=== PATIENT | female | born 1970 | race Caucasian/White ===

== ENCOUNTER 2017-10-17 13:24 | Inpatient (IN) | payer OTHER ==
[~2017-10-17] VITALS: Ht 149.9 cm; Wt 64.1 kg
[2017-10-17] MEDS ORDERED: HEPARIN SODIUM (PORCINE) 5000 UNITS/ML 1ML VIAL ONE (13:55)
[2017-10-17] MEDS ORDERED: LIDOCAINE 2%HCL (LOCAL ANESTH.) INJ 20ML MDV ONE (13:56)
[2017-10-17] MEDS ORDERED: IOHEXOL 350 MG/ML 100ML IJ ONE (13:56)
[2017-10-17] MEDS ORDERED: HEPARIN SODIUM (PORCINE) 5000 UNITS/ML 1ML VIAL IV ONE (14:00)
[2017-10-17] MEDS ORDERED: fentaNYL CITRATE 100 MCG/2 ML VL ONE (14:02)
[2017-10-17] MEDS ORDERED: ANGIOMAX 250 MG VIAL IV ONE (14:02)
[2017-10-17] MEDS ORDERED: MIDAZOLAM HCL 1MG/1ML-2 ML VIAL ONE (14:03)
[2017-10-17 14:04] LABS: Basophils # (auto) 0.1 uL; Basophils % (auto) 0.7 % (0.0-2.0); Eosinophils # (auto) 0.1 uL; Eosinophils % (auto) 0.9 % (0.0-7.0); Hematocrit 40.1 % (36.0-46.0); Hemoglobin 13.2 g/dL (12.2-16.2); Lymphocytes # (auto) 2.1 uL; Lymphocytes % (auto) 23.6 % (10.0-50.0); Mean Corpuscular Hemoglobin 28.9 pg (28.0-32.0); Mean Corpuscular Volume 87.5 fL (80.0-100.0); Monocytes # (auto) 0.6 uL; Monocytes % (auto) 7.2 % (0.0-12.0); Neutrophils # (auto) 5.9 uL; Neutrophils % (auto) 67.6 % (37.0-80.0); Nucleated Red Blood Cells % 0.1 %; Platelet Count (auto) 283 10^3/uL (140-450); Red Blood Cells 4.58 10^6/uL (4.0-5.20); Red Cell Distribution Width 14.2 % (11.8-14.3); White Blood Cell 8.8 10^3/uL (4.4-10.8)
[2017-10-17] MEDS ORDERED: EPINEPHrine HCL 1 MG/10 ML SYRG ONE (14:06)
[2017-10-17] MEDS ORDERED: ATROPINE SULF 0.5 MG/5ML SYR ONE (14:06)
[2017-10-17] MEDS ORDERED: PRASUGREL HCL 10 MG TAB ONE (14:37)
[2017-10-17 14:44] LABS: Albumin 3.5 g/dL (3.4-5.0); BUN/Creatinine Ratio 21.4; Bilirubin, Total 0.4 mg/dL (0.2-1.0); Calcium 8.2 mg/dL (8.5-10.1); Magnesium 2.5 mg/dL (1.6-2.6); Potassium 3.8 mmol/L (3.5-5.1)
[2017-10-17] MEDS ORDERED: SODIUM CHLORIDE 0.9% 1,000 ML IV SCH (15:09)
[2017-10-17] MEDS ORDERED: HYDROcodone-ACET 5/325MG TAB PO PRN (15:15)
[2017-10-17] MEDS ORDERED: ACETAMINOPHEN 500 MG TAB PO PRN (15:15)
[2017-10-17] MEDS ORDERED: ONDANSETRON HCL 4 MG/2 ML VIAL IV PRN (15:15)
[2017-10-17] MEDS ORDERED: MORPHINE SULF INJ 2 MG/ML SYRINGE 1ML IV PRN ×2 (15:15)
[2017-10-17] MEDS ORDERED: NITROGLYCERIN 0.4 MG SL TAB SL PRN ×2 (15:15)
[2017-10-17] MEDS ORDERED: PANTOPRAZOLE 40 MG/10 ML VIAL IV ONE (15:30)
[2017-10-17] MEDS ORDERED: OPTISON 3ml Vial for INJ IV ONE ×2 (16:25→16:45)
[2017-10-17] MEDS: METOPROLOL TARTRATE 25 MG TAB PO SCH (21:49)
[2017-10-17 22:00] VITALS: BP 121/82
[2017-10-17] MEDS ORDERED: ATORVASTATIN 20 MG TAB PO SCH (22:00)
[2017-10-18 05:00] VITALS: BP 99/63
[2017-10-18 07:22] LABS: Calcium 8.3 mg/dL (8.5-10.1); Potassium 3.8 mmol/L (3.5-5.1)
[2017-10-18 07:59] LABS: Basophils # (auto) 0 uL; Basophils % (auto) 0.4 % (0.0-2.0); Eosinophils # (auto) 0.1 uL; Eosinophils % (auto) 0.8 % (0.0-7.0); Hematocrit 36.9 % (36.0-46.0); Hemoglobin 12.3 g/dL (12.2-16.2); Lymphocytes # (auto) 2.2 uL; Lymphocytes % (auto) 23.2 % (10.0-50.0); Mean Corpuscular Hemoglobin 29.4 pg (28.0-32.0); Mean Corpuscular Hgb Conc. 33.5 g/dL (32.0-36.0); Mean Corpuscular Volume 87.8 fL (80.0-100.0); Monocytes # (auto) 0.9 uL; Monocytes % (auto) 9.6 % (0.0-12.0); Neutrophils # (auto) 6.3 uL; Platelet Count (auto) 265 10^3/uL (140-450); Red Cell Distribution Width 14.3 % (11.8-14.3); White Blood Cell 9.5 10^3/uL (4.4-10.8)
[2017-10-18] MEDS: METOPROLOL TARTRATE 25 MG TAB PO SCH (09:38)
[2017-10-18 09:41] VITALS: BP 98/63
[2017-10-18] MEDS ORDERED: ASPirin 81 mg TAB PO SCH (10:00)
[2017-10-18] MEDS ORDERED: PRASUGREL HCL 10 MG TAB PO SCH (10:00)
[2017-10-18] MEDS ORDERED: PANTOPRAZOLE 40 MG/10 ML VIAL IV SCH (10:00)
[2017-10-18 11:41] VITALS: BP 115/65
[2017-10-18 15:49] VITALS: BP 98/63
== END 2017-10-18 16:22 | disposition home or self-care (01) | DRG 247 ==
LOC: ER 13:24 → EDBD 13:24 → OVERFLOW 13:25 → TELE-WESTW 17:18
PROVIDERS: ADMIT Internal Medicine Cardiovascular Disease; ATTEND Internal Medicine
PROC: 027135Z Dilation of Coronary Artery, Two Arteries with Two Drug-eluting Intraluminal Devices, Percutaneous Approach (ICD-10-PCS; principal; 2017-10-17)
PROC: 4A023N7 Measurement of Cardiac Sampling and Pressure, Left Heart, Percutaneous Approach (ICD-10-PCS; 2017-10-17)
PROC: B2111ZZ Fluoroscopy of Multiple Coronary Arteries using Low Osmolar Contrast (ICD-10-PCS; 2017-10-17)
DX: I21.9 Acute myocardial infarction, unspecified (principal); I11.9 Hypertensive heart disease without heart failure; E78.5 Hyperlipidemia, unspecified; I25.10 Atherosclerotic heart disease of native coronary artery without angina pectoris; Z72.0 Tobacco use; Z82.49 Family history of ischemic heart disease and other diseases of the circulatory system; Z88.8 Allergy status to other drugs, medicaments and biological substances
CPT/HCPCS: 36415; 71045; 80048; 80053; 83735; 84484; 85025; 86850; 86900; 86901; 92928; 93005; 93306; 93458; 99152; C1874; C1887; C9113; J0461; J2250; Q9956

== ENCOUNTER 2018-07-08 14:14 | Emergency (ER) | payer OTHER ==
[~2018-07-08] VITALS: Ht 149.9 cm; Wt 59.0 kg
[2018-07-08] MEDS ORDERED: SODIUM CHLORIDE 0.9% 1,000 ML IV ONE (14:18)
[2018-07-08] MEDS ORDERED: ASPirin 81 mg TAB PO ONE (14:30)
[2018-07-08 14:48] LABS: Basophils # (auto) 0 uL; Basophils % (auto) 0.6 % (0.0-2.0); Eosinophils # (auto) 0.1 uL; Eosinophils % (auto) 1.7 % (0.0-7.0); Hematocrit 39.4 % (36.0-46.0); Hemoglobin 13.4 g/dL (12.2-16.2); Lymphocytes # (auto) 2.1 uL; Lymphocytes % (auto) 31.9 % (10.0-50.0); Mean Corpuscular Hemoglobin 29.2 pg (28.0-32.0); Mean Corpuscular Volume 85.8 fL (80.0-100.0); Monocytes # (auto) 0.4 uL; Monocytes % (auto) 6.4 % (0.0-12.0); Neutrophils # (auto) 3.9 uL; Neutrophils % (auto) 59.4 % (37.0-80.0); Nucleated Red Blood Cells % 0.1 %; Platelet Count (auto) 274 10^3/uL (140-450); Red Blood Cells 4.59 10^6/uL (4.0-5.20); Red Cell Distribution Width 13.8 % (11.8-14.3); White Blood Cell 6.5 10^3/uL (4.4-10.8)
[2018-07-08 15:08] LABS: Alanine Aminotransferase 31 U/L (13-56); Albumin 3.7 g/dL (3.4-5.0); Anion Gap 6 (5-15); Aspartate Aminotransferase 19 U/L (15-37); Blood Urea Nitrogen 11 mg/dL (7-18); Carbon Dioxide 24 mmol/L (21-32); Chloride 111 mmol/L (98-107); GFR African American 152 mL/min; GFR Non-African American 125 mL/min; Glucose 85 mg/dL (74-106); Magnesium 2.3 mg/dL (1.6-2.6); Potassium 3.7 mmol/L (3.5-5.1); Sodium 141 mmol/L (136-145)
[2018-07-08 15:10] LABS: INR 0.96 (0.9-1.15); Partial Thromboplastin Time 29.3 sec (23.78-33.04); Prothrombin Time 10.3 sec (9.27-12.13)
[2018-07-08 15:13] LABS: Alkaline Phosphatase 100 U/L (45-117); Bilirubin, Total 0.5 mg/dL (0.2-1.0); Total Protein 6.7 g/dL (6.4-8.2)
[2018-07-08 21:30] VITALS: BP 140/79
== END 2018-07-08 21:44 | disposition short-term general hospital (02) ==
LOC: EDBD 14:14 → ER 14:16
DX: I24.9 Acute ischemic heart disease, unspecified (principal); I25.2 Old myocardial infarction; F17.210 Nicotine dependence, cigarettes, uncomplicated; Z98.61 Coronary angioplasty status; Z88.8 Allergy status to other drugs, medicaments and biological substances
CPT/HCPCS: 36415; 71045; 80053; 83735; 83880; 84484; 85025; 85610; 85730; 93005; 94761

== ENCOUNTER 2019-05-25 12:46 | Inpatient (IN) | payer OTHER ==
[~2019-05-25] VITALS: Ht 149.9 cm; Wt 64.2 kg
[2019-05-25] MEDS ORDERED: SODIUM CHLORIDE 0.9% 1,000 ML IVB ONE (13:23)
[2019-05-25 13:55] LABS: Basophils # (auto) 0 uL; Basophils % (auto) 0.8 % (0.0-2.0); Eosinophils # (auto) 0.1 uL; Eosinophils % (auto) 2.4 % (0.0-7.0); Hematocrit 39.1 % (36.0-46.0); Hemoglobin 13.2 g/dL (12.2-16.2); Lymphocytes # (auto) 1.5 uL; Lymphocytes % (auto) 30.3 % (10.0-50.0); Mean Corpuscular Hemoglobin 29.3 pg (28.0-32.0); Mean Corpuscular Hgb Conc. 33.7 g/dL (32.0-36.0); Mean Corpuscular Volume 86.9 fL (80.0-100.0); Monocytes # (auto) 0.4 uL; Monocytes % (auto) 7.8 % (0.0-12.0); Neutrophils % (auto) 58.7 % (37.0-80.0); Platelet Count (auto) 258 10^3/uL (140-450); Red Cell Distribution Width 14.3 % (11.8-14.3); White Blood Cell 5.1 10^3/uL (4.4-10.8)
[2019-05-25 14:09] LABS: Alanine Aminotransferase 24 U/L (13-56); Albumin 3.5 g/dL (3.4-5.0); Anion Gap 6 (5-15); Aspartate Aminotransferase 13 U/L (15-37); BUN/Creatinine Ratio 12.3; Blood Urea Nitrogen 8 mg/dL (7-18); Calcium 8.2 mg/dL (8.5-10.1); Carbon Dioxide 24 mmol/L (21-32); Chloride 114 mmol/L (98-107); GFR African American 125 mL/min; GFR Non-African American 103 mL/min; Glucose 123 mg/dL (74-106); Magnesium 2.5 mg/dL (1.6-2.6); Potassium 3.7 mmol/L (3.5-5.1); Sodium 144 mmol/L (136-145)
[2019-05-25 14:10] LABS: INR 0.93 (0.9-1.15); Partial Thromboplastin Time 30.2 sec (23.64-32.05)
[2019-05-25 14:14] LABS: Alkaline Phosphatase 90 U/L (45-117); Bilirubin, Total 0.4 mg/dL (0.2-1.0); Total Protein 6.4 g/dL (6.4-8.2)
[2019-05-25 15:28] LABS: Urine Bacteria FEW /hpf (None Seen); Urine Blood Negative /uL (Negative); Urine Mucus FEW (None Seen); Urine Specific Gravity 1.009 (1.001-1.035); Urine WBC 14 /hpf (0 - 5)
[2019-05-25 15:38] LABS: Alcohol, Urine < 3.0 mg/dL (0-5); Amphetamine Screen, Urine NEGATIVE (NEGATIVE); Barbiturate Scree,Urine NEGATIVE (NEGATIVE); Benzodiazephine Screen, Urine NEGATIVE (NEGATIVE); Cannabinoid Screen, Urine NEGATIVE (NEGATIVE); Cocaine Screen, Urine NEGATIVE (NEGATIVE); Opiate Scree,Urine NEGATIVE (NEGATIVE); Phencyclidine Screen, Urine NEGATIVE (NEGATIVE)
[2019-05-25] MEDS ORDERED: MVI in SODIUM CHLORIDE 0.9% 1,010 ML IV ONE (16:50)
[2019-05-25] MEDS ORDERED: SODIUM CHLORIDE 0.9% 2,000 ML IV ONE (17:00)
[2019-05-25] MEDS ORDERED: THIAMINE 100mg/ml INJ (200mg/2ml VIAL) IV ONE (17:00)
[2019-05-25] MEDS ORDERED: cefTRIAXone 1GM/50ML D5W 50 ML IV ONE (18:00)
[2019-05-25] MEDS ORDERED: TEMAZEPAM 15 MG CAP PO PRN (22:45)
[2019-05-25] MEDS ORDERED: ONDANSETRON HCL 4 MG/2 ML VIAL IV PRN (22:45)
[2019-05-25] MEDS ORDERED: ACETAMINOPHEN 500 MG TAB PO PRN (22:45)
--- NOTE | 2019-05-26 00:05 | NUR ---
RECEIVED PATIENT FROM ED VIA WHEELCHAIR, AWAKE, ALERT, ORIENTED X4, AMBULATORY. NO S/S OF RESPIRATORY DISTRESS, DENIES ANY PAIN. SKIN IS INTACT. ORIENTED ON PLAN OF CARE. BED IS LOCKED AND IN LOWEST POSITION, SIDE RAILS UP X2, CALL LIGHT WITHIN REACH. WILL CONTINUE TO MONITOR.
[2019-05-26 00:10] VITALS: BP 115/73
--- NOTE | 2019-05-26 00:15 | NUR ---
UNABLE TO DO MED REC, PATIENT DOES NOT KNOW THE NAME OF HER HOME MEDICATIONS. INSTRUCTED TO ASK SOMEBODY TO BRING MEDICATIONS LIST IN AM
[2019-05-26 05:00] VITALS: BP 136/70
[2019-05-26 06:58] LABS: Basophils # (auto) 0 uL; Eosinophils # (auto) 0.1 uL; Eosinophils % (auto) 2.8 % (0.0-7.0); Lymphocytes # (auto) 1.9 uL; Lymphocytes % (auto) 36.1 % (10.0-50.0); Mean Corpuscular Hemoglobin 29.5 pg (28.0-32.0); Mean Corpuscular Hgb Conc. 34.1 g/dL (32.0-36.0); Mean Corpuscular Volume 86.3 fL (80.0-100.0); Monocytes # (auto) 0.3 uL; Monocytes % (auto) 6.8 % (0.0-12.0); Neutrophils # (auto) 2.7 uL; Neutrophils % (auto) 53.3 % (37.0-80.0); Platelet Count (auto) 243 10^3/uL (140-450); Red Cell Distribution Width 14.3 % (11.8-14.3); White Blood Cell 5.1 10^3/uL (4.4-10.8)
--- NOTE | 2019-05-26 07:09 | NUR ---
CARE ENDORSED TO AM SHIFT RN
--- NOTE | 2019-05-26 07:12 | NUR ---
Opening Shift Note Assumed care of patient, awake and alert. No S/S of distress/SOB or pain. Bed in lowest position with call light within reach. Instructed on POC and to call for assist PRN, will continue to monitor for changes.
[2019-05-26 07:20] LABS: BUN/Creatinine Ratio 15.3; Calcium 8.3 mg/dL (8.5-10.1); Potassium 3.8 mmol/L (3.5-5.1)
[2019-05-26] MEDS ORDERED: cefTRIAXone 1GM/50ML D5W 50 ML IV SCH (09:00)
[2019-05-26] MEDS ORDERED: FAMOTIDINE 20 MG TAB PO SCH (10:00)
[2019-05-26] MEDS ORDERED: CLOPIDOGREL BISULFATE 75 MG TAB PO SCH (10:00)
[2019-05-26] MEDS ORDERED: SODIUM CHLORIDE 0.9% 1,000 ML IV SCH (12:15)
[2019-05-26 17:33] VITALS: BP 133/82
--- NOTE | 2019-05-26 19:32 | NUR ---
CALLED [facility] [phone], REPORT GIVEN TO IDRIS SMITH.
--- NOTE | 2019-05-26 19:35 | NUR ---
CALLED [facility], CONFIRMED POULTRY HUSBANDMAN TIME AT 20:00
[2019-05-26 19:36] VITALS: BP 120/77
--- NOTE | 2019-05-26 21:00 | NUR ---
FOLLOWED UP [facility]; PER LEGAL SPECIALIST, AMBULANCE WAS DIRECTED TO A 911 CALL. NEW CUSTOMER ADVISOR SPECIALIST TIME AT 22:00
--- NOTE | 2019-05-26 21:07 | NUR ---
CALLED [facility] FOR PATIENT'S LIST OF HOME MED. OFFICE IS CLOSED
--- NOTE | 2019-05-26 21:25 | NUR ---
PICKED UP BY [facility]; PATIENT IS AWAKE, ALERT, ORIENTED X4. NO S/S OF RESPIRATORY DISTRESS, DENIES ANY PAIN. V/S STABLE.
[2019-05-26 22:00] VITALS: BP 124/64
[2019-05-26] MEDS ORDERED: ATORVASTATIN 20 MG TAB PO SCH ×2 (22:00)
[2019-05-27] MEDS ORDERED: ASPirin-EC 81 mg tab PO SCH (10:00)
== END 2019-05-26 21:25 | disposition short-term general hospital (02) | DRG 690 ==
LOC: ER 12:46 → EDBD 12:46 → TELE 12:47 → TELE-CENTR 23:33
PROVIDERS: ADMIT Nurse Practitioner Family; ATTEND Internal Medicine
DX: N39.0 Urinary tract infection, site not specified (principal); I25.5 Ischemic cardiomyopathy; R55 Syncope and collapse; I25.10 Atherosclerotic heart disease of native coronary artery without angina pectoris; I10 Essential (primary) hypertension; F17.210 Nicotine dependence, cigarettes, uncomplicated; E78.5 Hyperlipidemia, unspecified; F32.9 Major depressive disorder, single episode, unspecified; I25.2 Old myocardial infarction; Z95.5 Presence of coronary angioplasty implant and graft; Z82.49 Family history of ischemic heart disease and other diseases of the circulatory system
CPT/HCPCS: 36415; 70450; 71045; 80048; 80053; 80307; 80320; 81001; 81025; 82962; 83036; 83735; 84443; 84484; 85025; 85610; 85730; 87086; 93005; 93306; 93886; G0378; J0696

== ENCOUNTER 2022-03-28 18:35 | Emergency (ER) | payer BC, OTHER ==
[~2022-03-28] VITALS: Ht 149.9 cm; Wt 54.4 kg
[2022-03-28 18:47] VITALS: BP 166/70
[2022-03-28 19:19] LABS: Basophils # (auto) 0.1 10 ^3/uL (0-0.2); Eosinophils # (auto) 0.1 10 ^3/uL (0-0.8); Eosinophils % (auto) 1.8 % (0.0-7.0); Hematocrit 40.1 % (36.0-46.0); Hemoglobin 13.5 g/dL (12.2-16.2); Lymphocytes # (auto) 2.2 10 ^3/uL (0.4-5.4); Lymphocytes % (auto) 33.7 % (10.0-50.0); Mean Corpuscular Hemoglobin 28.5 pg (28.0-32.0); Mean Corpuscular Hgb Conc. 33.7 g/dL (32.0-36.0); Mean Corpuscular Volume 84.6 fL (80.0-100.0); Monocytes # (auto) 0.4 10 ^3/uL (0-1.3); Monocytes % (auto) 6.2 % (0.0-12.0); Neutrophils # (auto) 3.7 10 ^3/uL (1.6-8.6); Neutrophils % (auto) 57.3 % (37.0-80.0); Red Blood Cells 4.74 10^6/uL (4.0-5.20); White Blood Cell 6.4 10^3/uL (4.4-10.8)
[2022-03-28 19:36] LABS: INR 0.92 (0.9-1.15); Partial Thromboplastin Time 29.3 sec (24.6-33.4)
[2022-03-28 20:20] LABS: Albumin 3.7 g/dL (3.4-5.0); BUN/Creatinine Ratio 13.2; Calcium 8.8 mg/dL (8.5-10.1); Magnesium 2.3 mg/dL (1.6-2.6); Potassium 3.2 mmol/L (3.5-5.1)
[2022-03-28 20:33] LABS: Bilirubin, Total 0.2 mg/dL (0.2-1.0); Total Protein 6.7 g/dL (6.4-8.2)
== END 2022-03-29 00:18 | disposition home or self-care (01) ==
LOC: ER 18:35
DX: R07.89 Other chest pain (principal); R20.0 Anesthesia of skin; I25.2 Old myocardial infarction; E78.5 Hyperlipidemia, unspecified; F17.210 Nicotine dependence, cigarettes, uncomplicated; Z86.73 Personal history of transient ischemic attack (TIA), and cerebral infarction without residual deficits; Z98.61 Coronary angioplasty status; Z88.8 Allergy status to other drugs, medicaments and biological substances
CPT/HCPCS: 36415; 71045; 80053; 83735; 83880; 84443; 84484; 85025; 85610; 85730; 93005